=== PATIENT | female | born 1995 | race Hispanic/Latino ===

== ENCOUNTER 2017-01-18 12:05 | Outpatient (CLI) | payer OTHER, MEDICAID ==
[2017-01-18 13:33] VITALS: BP 135/78
== END 2017-01-18 13:45 | disposition home or self-care (01) ==
LOC: EDBD → TRG 12:05 → LD 12:06 → TRG 13:45
PROVIDERS: ATTEND Obstetrics & Gynecology
DX: O47.1 False labor at or after 37 completed weeks of gestation (principal); Z3A.38 38 weeks gestation of pregnancy